=== PATIENT | male | born 1960 | race Caucasian/White ===

== ENCOUNTER 2023-11-15 07:06 | Outpatient (CLI) | payer BC, SELFPAY ==
[2023-11-15 07:52] LABS: Basophils Absolute Auto 0.1 K/mm3 (0.0-0.1); Basophils Percent Auto 1.1 % (0.2-1.2); Eosinophils Absolute Auto 0.2 K/mm3 (0-0.3); Eosinophils Percent Auto 3.7 % (0-4.4); Hematocrit 44.1 % (42.0-52.0); Hemoglobin 14.8 g/dL (14.0-18.0); Immature Granulocyte Absolute 0.03 K/mm3 (0.00-0.031); Immature Granulocyte Percent A 0.5 % (0-0.5); Lymphocytes Absolute Auto 2.14 K/mm3 (0.9-3.2); Mean Corpuscular HGB Conc 33.6 g/dl (32-36); Mean Corpuscular Hemoglobin 31.6 pg (26-34); Mean Platelet Volume 9.8 fl (7.4-10.4); Monocytes Absolute Auto 0.5 K/mm3 (0.1-0.6); Monocytes Percent Auto 8.1 % (2.6-8.5); Neutrophils Absolute Auto 3.3 K/mm3 (1.3-6.7); Neutrophils Percent Auto 52.6 % (45.5-73.1); Platelet Count Result 226 k/mm3 (150-375); Red Blood Count 4.69 M/mm3 (4.6-6.20); Red Cell Distribution Width 12.8 % (11.5-14.5); White Blood Count 6.3 K/mm3 (4.5-10.0)
[2023-11-15 07:57] LABS: Cholesterol 169 mg/dL (0-200); HDL Direct 64 mg/dL; Triglycerides 83 mg/dL (<150)
[2023-11-15 08:08] LABS: LDL Cholesterol Direct 86 mg/dL
== END 2023-11-15 07:07 | disposition home or self-care (01) ==
PROVIDERS: PCP Internal Medicine; Visit Provider Internal Medicine
DX: E78.00 Pure hypercholesterolemia, unspecified (principal)
CPT/HCPCS: 36415; 80061; 85025

== ENCOUNTER 2024-06-28 08:06 | Outpatient (CLI) | payer OTHER, SELFPAY ==
[2024-06-28 08:59] LABS: Basophils Absolute Auto 0.1 K/mm3 (0.0-0.1); Basophils Percent Auto 1.6 % (0.2-1.2); Eosinophils Absolute Auto 0.3 K/mm3 (0-0.3); Hematocrit 43.1 % (42.0-52.0); Hemoglobin 15.1 g/dL (14.0-18.0); Immature Granulocyte Absolute 0.01 K/mm3 (0.00-0.031); Immature Granulocyte Percent A 0.2 % (0-0.5); Lymphocytes Percent Auto 30.7 % (18.3-44.2); Mean Corpuscular Hemoglobin 32.6 pg (26-34); Mean Corpuscular Volume 93.1 fl (80-100); Mean Platelet Volume 10.2 fl (7.4-10.4); Monocytes Absolute Auto 0.6 K/mm3 (0.1-0.6); Monocytes Percent Auto 9.7 % (2.6-8.5); Neutrophils Absolute Auto 3.3 K/mm3 (1.3-6.7); Neutrophils Percent Auto 52.8 % (45.5-73.1); Platelet Count Result 227 k/mm3 (150-375); Red Blood Count 4.63 M/mm3 (4.6-6.20); Red Cell Distribution Width 12.5 % (11.5-14.5); White Blood Count 6.2 K/mm3 (4.5-10.0)
[2024-06-28 09:12] LABS: Alanine Aminotransferase 26 U/L (6-50); Albumin Level 4.4 g/dL (3.5-5.1); Alkaline Phosphatase 36 U/L (38-126); Anion Gap 7 mmol/L (4-12); Aspartate Amino Transferase 25 U/L (17-59); Bilirubin,Total 1.1 mg/dL (0.2-1.3); Blood Urea Nitrogen 18 mg/dL (9-20); Calcium 9.2 mg/dL (8.4-10.2); Carbon Dioxide 30 mmol/L (22-30); Chloride 100 mmol/L (98-107); Cholesterol 164 mg/dL (0-200); Estimated Glomerular Filt Rate > 60; Glucose 107 mg/dL (65-110); HDL Direct 73 mg/dL; Potassium 4.5 mmol/L (3.4-5.0); Sodium 137 mmol/L (137-145); Triglycerides 86 mg/dL (<150)
[2024-06-28 09:23] LABS: LDL Cholesterol Direct 61 mg/dL
[2024-06-28 09:42] LABS: Prostate Specific Antigen 2.3 ng/mL (< OR = 4.0)
[2024-06-28 10:23] LABS: Free T4 Free Thyroxine 1.05 ng/mL (0.78-2.19)
== END 2024-06-28 08:07 | disposition home or self-care (01) ==
LOC: ANHLAB 08:12
PROVIDERS: PCP Internal Medicine; Visit Provider Internal Medicine
DX: I10 Essential (primary) hypertension (principal); N42.9 Disorder of prostate, unspecified
CPT/HCPCS: 36415; 80053; 80061; 84153; 84439; 84443; 85025